=== PATIENT | female | born 1965 | race Caucasian/White ===

== ENCOUNTER → 2021-11-16 16:00 | Outpatient (CLI) | payer OTHER, SELFPAY ==
[2021-11-16 14:41] LABS: Barbiturates Screen,Urine Negative ng/ml (<200)
[2021-11-16 14:42] LABS: Benzodiazepines Screen,Urine Negative ng/ml (<200)
[2021-11-16 14:43] LABS: Cannabinoid Screen,Urine Negative ng/ml (<50); Cocaine Screen,Urine Negative ng/ml (<300)
[2021-11-16 14:44] LABS: Methadone Screen,Urine Negative ng/ml (<300); Opiate Screen,Urine Negative ng/ml (<300)
[2021-11-16 14:45] LABS: Phencyclidine Screen,Urine Negative ng/ml (<25)
[2021-11-16 15:04] LABS: Amphetamine/Metha Screen,Urine Positive ng/ml (<1000)
== END ==
PROVIDERS: Visit Provider Emergency Medicine
DX: Z79.899 Other long term (current) drug therapy (principal)
CPT/HCPCS: 80305

== ENCOUNTER → 2021-12-04 15:09 | Outpatient (CLI) | payer OTHER, SELFPAY ==
[2021-12-04 15:19] LABS: Amphetamine/Metha Screen,Urine Negative ng/ml (<1000)
[2021-12-04 15:21] LABS: Barbiturates Screen,Urine Negative ng/ml (<200); Benzodiazepines Screen,Urine Positive ng/ml (<200)
[2021-12-04 15:22] LABS: Cannabinoid Screen,Urine Negative ng/ml (<50)
[2021-12-04 15:23] LABS: Cocaine Screen,Urine Negative ng/ml (<300); Methadone Screen,Urine Negative ng/ml (<300)
[2021-12-04 15:24] LABS: Opiate Screen,Urine Negative ng/ml (<300)
[2021-12-04 16:17] LABS: Phencyclidine Screen,Urine Negative ng/ml (<25)
== END ==
PROVIDERS: Visit Provider Emergency Medicine
DX: Z79.899 Other long term (current) drug therapy (principal)
CPT/HCPCS: 80305

== ENCOUNTER → 2022-01-07 11:54 | Outpatient (CLI) | payer OTHER, SELFPAY ==
[2022-01-05 13:41] LABS: Barbiturates Screen,Urine Negative ng/ml (<200); Benzodiazepines Screen,Urine Positive ng/ml (<200)
[2022-01-05 13:42] LABS: Amphetamine/Metha Screen,Urine Negative ng/ml (<1000)
[2022-01-05 13:43] LABS: Cannabinoid Screen,Urine Negative ng/ml (<50); Cocaine Screen,Urine Negative ng/ml (<300)
[2022-01-05 13:44] LABS: Methadone Screen,Urine Negative ng/ml (<300); Opiate Screen,Urine Negative ng/ml (<300)
[2022-01-05 13:45] LABS: Phencyclidine Screen,Urine Negative ng/ml (<25)
== END ==
PROVIDERS: PCP Emergency Medicine; Visit Provider Emergency Medicine
DX: F41.9 Anxiety disorder, unspecified (principal)
CPT/HCPCS: 80305

== ENCOUNTER → 2022-01-15 10:07 | Outpatient (CLI) | payer OTHER, SELFPAY ==
--- NOTE | 2022-01-15 10:17 | MM_ITS ---
PROCEDURE INFORMATION: Exam: MG Bilateral Screening 3D Mammography Exam date and time: 01/15/2022 10:09 AM Age: 56 years old Clinical indication: Screening, with concern for palpable painful lump in the left axilla/upper outer breast. No family history of breast cancer. TECHNIQUE: Imaging protocol: Bilateral Screening tomosynthesis and 2D mammography including computer-aided detection (CAD) when performed. Triangular skin marker placed at area of painful palpable concern in the left upper outer breast. COMPARISON: No relevant prior studies available. If prior mammograms are provided, I am happy to add an addendum. FINDINGS: MAMMOGRAPHY: Breast composition: There are scattered areas of fibroglandular density. Mass: Sub cm oval sharply circumscribed nodules in both upper outer quadrants, compatible with a benign appearance, likely intramammary lymph nodes. No suspicious mass. Architectural distortion: None. Calcifications: No suspicious calcifications. Asymmetric density: None. Skin thickening: None. Axillary adenopathy: None. Other: No focal mammographic findings at the area of concern in the left upper outer breast. IMPRESSION: Patient to be recalled for left diagnostic spot compression in the CC and MLO views as well as left breast ultrasound for further evaluation of painful palpable left clinical lump. Benign-appearing sub cm circumscribed nodules in both upper outer quadrants, probably intramammary lymph nodes. ASSESSMENT: BI-RADS Category 0: Incomplete- Need Additional Imaging Evaluation and/or Prior Mammograms for Comparison
== END ==
PROVIDERS: PCP Emergency Medicine; Visit Provider Emergency Medicine
DX: Z12.31 Encounter for screening mammogram for malignant neoplasm of breast (principal)
CPT/HCPCS: 77063; 77067

== ENCOUNTER → 2022-03-10 14:05 | Outpatient (CLI) | payer OTHER, SELFPAY ==
--- NOTE | 2022-03-10 14:05 | US_ITS ---
PROCEDURE INFORMATION: Exam: US Left Breast, Complete Exam date and time: 03/10/2022 2:38 PM Age: 56 years old Clinical indication: PT has palp area lt lateral chest wall-- too far out for spot views TECHNIQUE: Imaging protocol: Complete ultrasound of all four quadrants of the Left breast and the retroareolar regions, including ultrasound of the axilla when performed. COMPARISON: MG MM DIG SCREENING MAMM BI W/CAD 01/15/2022 10:09 AM FINDINGS: Breast: Sonographic images of the left the breast including the retroareolar region, all 4 quadrants and the axilla do not demonstrate any solid or cystic masses. No architectural distortion or acoustical shadowing. Patient reports a palpable abnormality along the left lateral chest wall. No focal findings are seen. No skin thickening or axillary adenopathy. IMPRESSION: No sonographic evidence of malignancy. Further evaluation of a palpable abnormality should be based on clinical grounds regardless of radiographic findings or lack thereof.Annual mammographic screening is recommended unless otherwise clinically indicated. ASSESSMENT: BI-RADS Category 1: Negative
== END ==
PROVIDERS: PCP Emergency Medicine; Visit Provider Emergency Medicine
DX: R92.8 Other abnormal and inconclusive findings on diagnostic imaging of breast (principal)
CPT/HCPCS: 76641

== ENCOUNTER → 2022-04-26 12:44 | Outpatient (CLI) | payer OTHER, SELFPAY ==
--- NOTE | 2022-04-26 12:50 | US_ITS ---
FINAL REPORT CLINICAL HISTORY: Nodule FINDINGS: US CHEST Limited sonographic images were obtained of the left lateral chest. At the area of a palpable abnormality no mass or fluid collection is seen. IMPRESSION: No mass or fluid collection at the area of interest. Reviewed, Interpreted and Dictated by Mani Miramontes III, MD Transcribed by Power Shen Authenticated and [facility]
== END ==
PROVIDERS: PCP Emergency Medicine; Visit Provider Nurse Practitioner Family
DX: R22.2 Localized swelling, mass and lump, trunk (principal)
CPT/HCPCS: 76604

== ENCOUNTER → 2022-06-03 15:50 | Outpatient (CLI) | payer OTHER, SELFPAY ==
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
== END ==
PROVIDERS: PCP Emergency Medicine; Visit Provider Surgery
DX: D17.9 Benign lipomatous neoplasm, unspecified (principal)
CPT/HCPCS: 71550

== ENCOUNTER → 2022-06-04 13:11 | Outpatient (CLI) | payer OTHER, SELFPAY ==
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
--- NOTE | 2022-06-04 13:11 | MR_ITS ---
FINAL REPORT CLINICAL HISTORY: shoulder pain left shoulder pain weakness in arm numbness posterior aspect of arm and shoulder FINDINGS: Multiplanar MR imaging of the left shoulder was performed without contrast. Motion on many of the images decreases exam sensitivity. The tendons of the rotator cuff are intact without evidence of rotator cuff tear. There is mild AC joint degenerative change. A small amount of fluid is seen in the subacromial/subdeltoid bursa. The glenoid labrum is intact. The long head of the biceps tendon is not well seen but probably intact. No significant glenohumeral joint effusion is seen. There is no evidence of fracture or dislocation. The musculature is intact. There is no evidence of soft tissue mass. IMPRESSION: No evidence of rotator cuff tear or labral tear. Mild AC joint arthrosis. Reviewed, Interpreted and Dictated by Mani Miramontes III, MD Transcribed by Power Shen Authenticated and [facility]
== END ==
PROVIDERS: PCP Emergency Medicine; Visit Provider Surgery
DX: R52 Pain, unspecified (principal); D17.9 Benign lipomatous neoplasm, unspecified
CPT/HCPCS: 72141; 73221; 76376

== ENCOUNTER → 2022-06-08 15:40 | Outpatient (CLI) | payer OTHER, SELFPAY ==
[2022-06-08 18:51] LABS: Amphetamine/Metha Screen,Urine Negative ng/ml (<1000)
[2022-06-08 18:52] LABS: Barbiturates Screen,Urine Negative ng/ml (<200); Benzodiazepines Screen,Urine Negative ng/ml (<200)
[2022-06-08 18:53] LABS: Cannabinoid Screen,Urine Positive ng/ml (<50); Cocaine Screen,Urine Negative ng/ml (<300)
[2022-06-08 18:54] LABS: Methadone Screen,Urine Negative ng/ml (<300)
[2022-06-08 18:56] LABS: Opiate Screen,Urine Negative ng/ml (<300)
[2022-06-08 18:57] LABS: Phencyclidine Screen,Urine Negative ng/ml (<25)
== END ==
PROVIDERS: PCP Emergency Medicine; Visit Provider Emergency Medicine
DX: Z79.899 Other long term (current) drug therapy (principal)
CPT/HCPCS: 80305

== ENCOUNTER → 2022-09-06 10:00 | Outpatient (CLI) | payer OTHER, SELFPAY ==
[2022-09-06 15:11] LABS: Amphetamine/Metha Screen,Urine Negative ng/ml (<1000); Barbiturates Screen,Urine Negative ng/ml (<200)
[2022-09-06 15:12] LABS: Benzodiazepines Screen,Urine Positive ng/ml (<200)
[2022-09-06 15:13] LABS: Cannabinoid Screen,Urine Negative ng/ml (<50)
[2022-09-06 15:14] LABS: Cocaine Screen,Urine Negative ng/ml (<300)
[2022-09-06 15:15] LABS: Methadone Screen,Urine Negative ng/ml (<300); Opiate Screen,Urine Negative ng/ml (<300)
[2022-09-06 15:16] LABS: Phencyclidine Screen,Urine Negative ng/ml (<25)
== END ==
PROVIDERS: PCP Emergency Medicine; Visit Provider Emergency Medicine
DX: Z79.899 Other long term (current) drug therapy (principal)
CPT/HCPCS: 80305

== ENCOUNTER → 2023-01-12 14:37 | Outpatient (CLI) | payer OTHER, SELFPAY ==
[2023-01-12 15:41] LABS: Amphetamine/Metha Screen,Urine Positive ng/ml (<1000)
[2023-01-12 15:42] LABS: Barbiturates Screen,Urine Negative ng/ml (<200); Benzodiazepines Screen,Urine Positive ng/ml (<200)
[2023-01-12 15:43] LABS: Cannabinoid Screen,Urine Negative ng/ml (<50); Cocaine Screen,Urine Negative ng/ml (<300)
[2023-01-12 15:44] LABS: Methadone Screen,Urine Negative ng/ml (<300)
[2023-01-12 15:45] LABS: Opiate Screen,Urine Negative ng/ml (<300); Phencyclidine Screen,Urine Negative ng/ml (<25)
== END ==
PROVIDERS: PCP Emergency Medicine; Visit Provider Emergency Medicine
DX: Z79.899 Other long term (current) drug therapy (principal)
CPT/HCPCS: 80305

== ENCOUNTER → 2023-03-07 13:43 | Outpatient (CLI) | payer OTHER, SELFPAY ==
[2023-03-07 13:44] LABS: Basophils % 0.4 % (0.1-2.0); Eosinophils # 0.1 K/mm3 (0.0-0.4); Eosinophils % 1.7 % (0.1-12.0); Hematocrit 43.6 % (37.0-47.0); Hemoglobin 14.5 g/dL (12.2-16.2); Mean Corpuscular HGB Conc 33.3 g/dL (31.8-35.4); Mean Corpuscular Hemoglobin 27.7 pg (27.0-31.2); Mean Corpuscular Volume 83.1 fl (81-99); Mean Platelet Volume 8.9 fl (7.4-10.4); Monocytes # 0.4 K/mm3 (0.1-1.0); Monocytes % 5.6 % (1.7-9.3); Neutrophils # 4.8 K/mm3 (1.8-7.8); Neutrophils % 65.3 % (37.0-80.0); Platelet Count 219 K/mm3 (142-424); Red Blood Count 5.25 M/mm3 (4.20-5.40); Red Cell Distribution Width 15.6 % (11.5-17.5); White Blood Count 7.3 K/mm3 (4.8-10.8)
[2023-03-07 13:46] LABS: Amphetamine/Metha Screen,Urine Positive ng/ml (<1000)
[2023-03-07 13:47] LABS: Barbiturates Screen,Urine Negative ng/ml (<200)
[2023-03-07 13:48] LABS: Benzodiazepines Screen,Urine Positive ng/ml (<200); Cannabinoid Screen,Urine Positive ng/ml (<50)
[2023-03-07 13:49] LABS: Cocaine Screen,Urine Negative ng/ml (<300)
[2023-03-07 13:50] LABS: Methadone Screen,Urine Negative ng/ml (<300); Opiate Screen,Urine Negative ng/ml (<300)
[2023-03-07 13:53] LABS: Phencyclidine Screen,Urine Negative ng/ml (<25)
[2023-03-07 14:06] LABS: Alanine Aminotransferase 12 U/L (12-78); Albumin Level 4.2 g/dl (3.5-5.0); Albumin/Globulin Ratio 1.7 (1.1-1.8); Alkaline Phosphatase 81 U/L (38-126); Aspartate Amino Transferase 21 U/L (14-36); Bilirubin,Total 0.3 mg/dl (0.2-1.3); Blood Urea Nitrogen 14 mg/dl (7-17); Calcium 9.2 mg/dl (8.4-10.2); Carbon Dioxide 26 mmol/L (22.0-30.0); Chloride 102 mmol/L (98-107); Chol/HDL Ratio 2.9 (1-3.5); Cholesterol 198 mg/dl (140-200); Estimated Glomerular Filt Rate 127 ml/min (>60); GFR (African American) 153 ML/MIN (>60); Globulin 2.5 g/dL (1.3-3.2); Glucose 84 mg/dl (74-100); HDL Cholesterol 68 mg/dl (40-60); Sodium 140 mmol/L (136-145); Total Protein,Serum 6.7 g/dl (6.3-8.2); Triglycerides 118 mg/dl (30-150); VLDL Cholesterol 24 mg/dL (0-40)
[2023-03-07 14:17] LABS: Direct LDL Cholesterol 97.18 mg/dL (100-129)
[2023-03-07 14:23] LABS: Free T4 (Free Thyroxine) 0.99 ng/dl (0.78-2.19)
[2023-03-07 14:37] LABS: Thyroid Stimulating Hormone 1.35 uIU/mL (0.465-4.68)
== END ==
PROVIDERS: PCP Emergency Medicine; Visit Provider Emergency Medicine
DX: G62.9 Polyneuropathy, unspecified (principal); R53.83 Other fatigue; E55.9 Vitamin D deficiency, unspecified; Z79.899 Other long term (current) drug therapy
CPT/HCPCS: 80053; 80061; 80305; 82306; 84439; 84443; 85025

== ENCOUNTER → 2023-03-14 13:18 | Outpatient (CLI) | payer OTHER, SELFPAY ==
[2023-03-14 12:58] LABS: Amphetamine/Metha Screen,Urine Negative ng/ml (<1000); Benzodiazepines Screen,Urine Positive ng/ml (<200)
[2023-03-14 12:59] LABS: Barbiturates Screen,Urine Negative ng/ml (<200)
[2023-03-14 13:00] LABS: Cannabinoid Screen,Urine Positive ng/ml (<50); Methadone Screen,Urine Negative ng/ml (<300)
[2023-03-14 13:01] LABS: Cocaine Screen,Urine Negative ng/ml (<300)
[2023-03-14 13:02] LABS: Opiate Screen,Urine Negative ng/ml (<300)
[2023-03-14 13:03] LABS: Phencyclidine Screen,Urine Negative ng/ml (<25)
== END ==
PROVIDERS: PCP Emergency Medicine; Visit Provider Emergency Medicine
DX: Z79.899 Other long term (current) drug therapy (principal)
CPT/HCPCS: 80305

== ENCOUNTER → 2023-04-29 14:17 | Outpatient (CLI) | payer OTHER, SELFPAY ==
[2023-04-29 12:15] LABS: Amphetamine/Metha Screen,Urine Negative ng/ml (<1000)
[2023-04-29 12:16] LABS: Barbiturates Screen,Urine Negative ng/ml (<200); Benzodiazepines Screen,Urine Positive ng/ml (<200)
[2023-04-29 12:17] LABS: Cannabinoid Screen,Urine Negative ng/ml (<50)
[2023-04-29 12:18] LABS: Cocaine Screen,Urine Negative ng/ml (<300); Methadone Screen,Urine Negative ng/ml (<300)
[2023-04-29 12:20] LABS: Opiate Screen,Urine Positive ng/ml (<300); Phencyclidine Screen,Urine Negative ng/ml (<25)
== END ==
PROVIDERS: PCP Emergency Medicine; Visit Provider Emergency Medicine
DX: F41.9 Anxiety disorder, unspecified (principal); Z79.899 Other long term (current) drug therapy
CPT/HCPCS: 80305

== ENCOUNTER → 2023-06-27 13:28 | Outpatient (CLI) | payer OTHER, SELFPAY ==
[2023-06-27 18:23] LABS: Amphetamine/Metha Screen,Urine Negative ng/ml (<1000)
[2023-06-27 18:24] LABS: Barbiturates Screen,Urine Negative ng/ml (<200)
[2023-06-27 18:25] LABS: Cannabinoid Screen,Urine Negative ng/ml (<50); Cocaine Screen,Urine Negative ng/ml (<300)
[2023-06-27 18:26] LABS: Methadone Screen,Urine Negative ng/ml (<300)
[2023-06-27 18:27] LABS: Opiate Screen,Urine Negative ng/ml (<300); Phencyclidine Screen,Urine Negative ng/ml (<25)
[2023-06-27 18:31] LABS: Benzodiazepines Screen,Urine Negative ng/ml (<200)
== END ==
PROVIDERS: PCP Emergency Medicine; Visit Provider Emergency Medicine
DX: G62.9 Polyneuropathy, unspecified (principal)
CPT/HCPCS: 80305

== ENCOUNTER 2023-12-16 08:21 | Day surgery (SDC) | payer MEDICARE, SELFPAY ==
[2023-12-16] VITALS (15 sets, daily range): BP systolic 103–141; BP diastolic 61–94; PULSE 65–86; RESP 16–18; TEMP 36.6; O2SAT 92–99; BMI 22.2
--- NOTE | 2023-12-16 07:05 | IR_ITS ---
APPROVED REPORT Patient Location: Outpatient PROCEDURES Selective coronary angiogram Intravascular lithotripsy to the proximal LAD Drug-eluting stent deployment to the proximal ID INDICATION Coronary artery disease, Extensive ostial proximal calcification above the LAD, Progressive angina pectoris Informed consent was obtained prior to the procedure. COMPLICATIONS NONE Estimated Blood Loss: LESS THAN 10 ML TECHNIQUE One percent lidocaine used to anesthetize the right anterior aspect of the wrist. The right radial artery was accessed via the Seldinger technique. A 6 Spanish sheath was placed in the right radial artery. 2.5 mg of Verapamil, 800 mcg of nitroglycerin, 1mg Lidocaine and 5000 U Heparin were given through the arterial sheath. The papa catheter was also used to perform selective coronary angiogram. At the end of the diagnostic angiogram therapeutic heparin was administered giving a therapeutic ACT and the guide catheter was placed in left main artery followed by Choice PT extra-support wire being placed down the LAD. A 3 mm x 12 mm shockwave lithotripsy balloon was deployed at 4 sandrita and a total of 40 pulsations were delivered reducing the calcified stenosis. Following this a 3 mm x 15 mm [place] frontier stent was placed in the ostial proximal segment and deployed at 18 sandrita reducing the critical stenosis to 0%. ANNEL-3 flow was present before and after the procedure. At the end the procedure the apparatus was removed the sheath was removed hemostasis was achieved using TR banding patient was transferred to the postop putting in stable condition ANGIOGRAPHIC RESULTS The left main artery Has a distal eccentric 10 to 20% stenosis The left anterior descending artery Has an ostial proximal calcified eccentric 80 to 90% stenosis. In between a large first septal vending service technician and a large bifurcating first obtuse marginal artery there is a concentric smooth 80% stenosis in the LAD. The remaining LAD is widely patent. The first diagonal artery is large bifurcates and is widely patent The circumflex artery Is nondominant yet still large with mild 10% luminal irregularities The right coronary artery Is codominant and has proximal 40 to 50% calcified stenoses The GAMINO ventriculogram reveals Was not performed The left ventricular end-diastolic pressure Not measured IMPRESSION Severe calcified proximal LAD disease as described above Successful stent to the proximal LAD severe disease reduced to 0% with 1 drug-eluting stent preceded by intravascular lithotripsy Persistent severe stenosis technically still in the proximal LAD which involves the bifurcation of a large diagonal artery which is best treated medically for the time being and less recalcitrant angina pectoris PLAN 1. Continue Plavix 75 mg daily plus aspirin 81 mg daily 2. LDL less than 55 to be achieved with high intensity statin 3. Avoidance of tobacco products 4. Maximize antianginal medications 5. Should patient continue to experience recalcitrant angina pectoris she can be brought back to the [facility] and undergo stenting of the LAD which would require jailing of a large bifurcating first diagonal artery and possibly placement of bifurcating stents. While this is possible I would recommend medical management for the time being 6. Cardiac rehabilitation Electronically signed by : Jason Banks MD 12/16/2023 12:48:42
[2023-12-16 08:50] LABS: Basophils # 0.1 K/mm3 (0-0.2); Basophils % 1.9 % (0.1-2.0); Eosinophils # 0.2 K/mm3 (0.0-0.4); Eosinophils % 2.7 % (0.1-12.0); Hematocrit 49.6 % (37.0-47.0); Hemoglobin 15.8 g/dL (12.2-16.2); Lymphocytes # 2.9 K/mm3 (0.7-4.5); Lymphocytes % 41.1 % (10-50); Mean Corpuscular HGB Conc 31.9 g/dL (31.8-35.4); Mean Corpuscular Hemoglobin 27.3 pg (27.0-31.2); Mean Corpuscular Volume 85.7 fl (81-99); Mean Platelet Volume 8.2 fl (7.4-10.4); Monocytes # 0.4 K/mm3 (0.1-1.0); Monocytes % 5.7 % (1.7-9.3); Neutrophils # 3.4 K/mm3 (1.8-7.8); Neutrophils % 48.5 % (37.0-80.0); Platelet Count 295 K/mm3 (142-424); Red Blood Count 5.78 M/mm3 (4.20-5.40); Red Cell Distribution Width 15.4 % (11.5-17.5); White Blood Count 7.1 K/mm3 (4.8-10.8)
[2023-12-16 08:54] LABS: Chloride 103 mmol/L (98-107); Potassium 3.2 mmoL/L (3.5-5.1); Sodium 140 mmol/L (136-145)
[2023-12-16 08:57] LABS: Anion Gap 9.2 mEq/L (5-15); Blood Urea Nitrogen 8 mg/dl (7-17); Calcium 9.7 mg/dl (8.4-10.2); Carbon Dioxide 31 mmol/L (22.0-30.0); Creatinine Clearance Estimated 103 mL/min (50-200); Estimated Glomerular Filt Rate 102 ml/min (>60); GFR (African American) 124 ML/MIN (>60); Glucose 83 mg/dl (74-100)
[2023-12-16] MEDS: HEPARIN 1,000 UNITS/ML 10ML VIAL (CATH LAB) 10000 UNIT IV (10:14)
[2023-12-16] MEDS: HEPARIN 1,000 UNITS/500ML NS (CATH LAB) 3000 UNIT IV (10:14)
[2023-12-16] MEDS: LIDOCAINE 1% 10ML MDV 20 ML IJ (10:14)
[2023-12-16] MEDS: 0.9 % SODIUM CHLORIDE 500 ML 25 ML IV (10:14)
[2023-12-16] MEDS: VERAPAMIL 2.5MG/ML 2ML VIAL 2.5 MG IV (10:15)
[2023-12-16] MEDS: diphenhydrAMINE 50MG/ML VIAL 50 MG IV (10:15)
[2023-12-16] MEDS: NITROGLYCERIN 800MCG/8ML SYR (CATH LAB) 800 MCG IA (10:15)
[2023-12-16] MEDS: FENTANYL 100MCG/2ML VIAL 50 MCG IV ×2 (10:25→10:41)
[2023-12-16] MEDS: MIDAZOLAM HCL 1MG/1ML 5ML VIAL 1 MG IV ×2 (10:26→10:41)
[2023-12-16] MEDS: IOPAMIDOL-370 (76%);100ML BOTTLE 90 ML IV (14:12)
[2023-12-16 14:13] LABS: CATHL Activated Clotting Time 375 SEC (74-125)
== END 2023-12-16 15:02 | disposition home or self-care (01) ==
PROVIDERS: Visit Provider Internal Medicine
DX: I25.118 Atherosclerotic heart disease of native coronary artery with other forms of angina pectoris (principal); I70.203 Unspecified atherosclerosis of native arteries of extremities, bilateral legs; R06.09 Other forms of dyspnea; F17.210 Nicotine dependence, cigarettes, uncomplicated; Z79.899 Other long term (current) drug therapy; I10 Essential (primary) hypertension; Z95.820 Peripheral vascular angioplasty status with implants and grafts; Z79.01 Long term (current) use of anticoagulants
CPT/HCPCS: 80048; 85025; 85347; 92928; 92972; 99152; C1725; C1761; C1769; C1876; C9600; J1644; Q9967

== ENCOUNTER 2023-12-21 12:41 | Outpatient (CLI) | payer MEDICARE, SELFPAY ==
[2023-12-21 13:00] LABS: Basophils # 0.2 K/mm3 (0-0.2); Basophils % 2.8 % (0.1-2.0); Eosinophils # 0.2 K/mm3 (0.0-0.4); Hematocrit 46.1 % (37.0-47.0); Hemoglobin 14.9 g/dL (12.2-16.2); Lymphocytes # 2.5 K/mm3 (0.7-4.5); Lymphocytes % 38.2 % (10-50); Mean Corpuscular HGB Conc 32.3 g/dL (31.8-35.4); Mean Corpuscular Hemoglobin 27.5 pg (27.0-31.2); Mean Corpuscular Volume 85.2 fl (81-99); Monocytes # 0.3 K/mm3 (0.1-1.0); Monocytes % 4.4 % (1.7-9.3); Neutrophils # 3.3 K/mm3 (1.8-7.8); Neutrophils % 51.5 % (37.0-80.0); Platelet Count 260 K/mm3 (142-424); Red Blood Count 5.41 M/mm3 (4.20-5.40); Red Cell Distribution Width 15.4 % (11.5-17.5); White Blood Count 6.4 K/mm3 (4.8-10.8)
[2023-12-21 14:25] LABS: Chloride 105 mmol/L (98-107); Sodium 139 mmol/L (136-145)
[2023-12-21 14:28] LABS: Blood Urea Nitrogen 13 mg/dl (7-17); Estimated Glomerular Filt Rate 126 ml/min (>60); GFR (African American) 153 ML/MIN (>60)
[2023-12-21 14:29] LABS: Calcium 9.7 mg/dl (8.4-10.2); Carbon Dioxide 28 mmol/L (22.0-30.0); Glucose 95 mg/dl (74-100)
== END 2023-12-21 23:59 ==
LOC: LAB 12:44
PROVIDERS: PCP Family Medicine; Visit Provider Internal Medicine
DX: I25.10 Atherosclerotic heart disease of native coronary artery without angina pectoris (principal); Z98.61 Coronary angioplasty status; F17.210 Nicotine dependence, cigarettes, uncomplicated
CPT/HCPCS: 36415; 80048; 85025

== ENCOUNTER 2023-12-27 12:52 | Outpatient (RCR) | payer MEDICARE, SELFPAY | END 2023-12-27 14:00 | disposition home or self-care (01) | LOC: PT 12:52 | PROVIDERS: Visit Provider Internal Medicine | DX: I25.10 Atherosclerotic heart disease of native coronary artery without angina pectoris (principal); Z95.5 Presence of coronary angioplasty implant and graft ==

== ENCOUNTER 2023-12-29 10:40 | Outpatient (CLI) | payer MEDICARE, SELFPAY ==
--- NOTE | 2023-12-29 10:41 | CA_ITS ---
FINAL REPORT TECHNIQUE: Color Doppler, duplex Doppler and sampson scale sonography of the bilateral neck vasculature was performed. Velocities were measured in the carotid arteries. Stenosis evaluation based on velocity criteria. CLINICAL HISTORY: dizziness, Smoker, CAD COMPARISON: None FINDINGS: The peak systolic velocity of the right common carotid artery is 98 cm/sec and internal carotid artery 78 cm/sec. The diastolic velocity in the internal carotid artery is 26 cm/sec. The ICA/CCA ratio is 0.94. Visually, mild to moderate plaque is seen. These findings are consistent with less than 50% stenosis. The external carotid artery is patent. The right vertebral artery is patent with antegrade flow. The peak systolic velocity of the left common carotid artery is 82 cm/sec and internal carotid artery 80 cm/sec. The diastolic velocity in the internal carotid artery is 22 cm/sec. The ICA/CCA ratio is 1. Visually, mild to moderate. These findings are consistent with less than 50% stenosis. The external carotid artery is patent. The left vertebral artery is patent with antegrade flow. IMPRESSION: No evidence of significant carotid stenosis. Bilateral patent vertebral arteries. If indicated, CTA or MRA could further evaluate. Reviewed, Interpreted and Dictated by Mani Miramontes III, MD Transcribed by Helen Blanco Authenticated and [facility]
== END 2023-12-29 23:59 | disposition home or self-care (01) ==
LOC: RT 10:41
PROVIDERS: PCP Family Medicine; Visit Provider Physician Assistant
DX: R42 Dizziness and giddiness (principal)
CPT/HCPCS: 93880